=== PATIENT | female | born 1950 | race Caucasian/White ===

== ENCOUNTER → 2022-08-19 | Outpatient (CLI) | payer MEDICARE, MEDICAID ==
--- NOTE | 2022-08-19 16:10 | Diagnostic Imaging Report ---
INDICATION: Pain. TECHNIQUE: Two views were obtained. FINDINGS: The alignment is normal. There is no fracture or dislocation. The soft tissues are unremarkable. There are minimal degenerative changes. IMPRESSION: Mild degenerative changes; otherwise, unremarkable. Dictated on workstation # [id number]
--- NOTE | 2022-08-19 18:10 | Diagnostic Imaging Report ---
Indication: Spinal stenosis. Time of Exam: 10:16 AM AP, lateral and coned lumbosacral views of the lumbar spine were obtained. Curvature and alignment of the lumbar spine are normal. Vertebral body heights are well-maintained without evidence of an acute compression fracture. There is mild disc space narrowing at L5-S1. Postop changes of posterior instrumented fusion with vertical stabilization rods and pedicle screws at L4-L5 level are noted. Hardware appears to be intact. There are degenerative changes in the lower thoracic spine. IMPRESSION: Lumbar spondylosis and postsurgical changes. No acute feature is detected. Dictated by: Dictated on workstation # [id number]
== END ==
LOC: ORTHO 09:02
PROVIDERS: ATTEND Orthopaedic Surgery
DX: M16.11 Unilateral primary osteoarthritis, right hip (principal); M47.896 Other spondylosis, lumbar region; Z98.890 Other specified postprocedural states
CPT/HCPCS: 72100; 73502

== ENCOUNTER → 2022-11-04 | Outpatient (CLI) | payer MEDICARE, MEDICAID | LOC: ORTHO 09:55 | PROVIDERS: ATTEND Orthopaedic Surgery | DX: S93.602D Unspecified sprain of left foot, subsequent encounter (principal); X58.XXXD Exposure to other specified factors, subsequent encounter | CPT/HCPCS: 99213 ==